=== PATIENT | male | born 1965 | race Hispanic/Latino ===

== ENCOUNTER 2021-06-03 17:04 | Emergency (ER) | payer OTHER, SELFPAY ==
--- NOTE | ~2021-06-03 | CT_ITS ---
EXAMINATION: CT abdomen pelvis w con INDICATION: Diffuse abdominal pain and vomiting TECHNIQUE: Computed tomographic images of the abdomen and pelvis were obtained after the administrati on of 100 cc of Omnipaque 350 intravenous contrast. The dose-length product (DLP) was 1149.70 mGy-cm. Automated exposure control and iterative reconstruction technique were employed. COMPARISON: None available FINDINGS: Minimal dependent atelectasis is present in the lung bases. The heart size is normal. The l iver, spleen, pancreas, and adrenal glands are normal. Stones are present in the nondistended gallbla dder. Cysts of the kidneys measure up to 6 mm on the right. There is a 3 mm nonobstructing stone of t he right kidney. No pathologically enlarged abdominal or pelvic lymph nodes are identified. There is no free intraperitoneal gas or evidence of bowel obstruction. The appendix is normal. IMPRESSION: 1. Cholelithiasis without evidence of cholecystitis. Reviewed, dictated and finalized at location [facility]. [facility]
[2021-06-03 17:10] VITALS: BP 154/84; PULSE 113; RESP 20; TEMP 36.8; O2SAT 98
[2021-06-03 19:10] VITALS: BP 137/79; PULSE 102; RESP 18; TEMP 37.4; O2SAT 97
[2021-06-03 19:45] VITALS: BP 144/86; PULSE 102; RESP 17; O2SAT 98
[2021-06-03 20:10] LABS: Basophils Percent Auto 0.2 % (0.2-1.2); Eosinophils Percent Auto 0.4 % (0-4.4); Hematocrit 43.4 % (42.0-52.0); Hemoglobin 15.3 g/dL (14.0-18.0); Immature Granulocyte Absolute 0.02 K/mm3 (0.00-0.031); Immature Granulocyte Percent A 0.4 % (0-0.5); Lymphocytes Absolute Auto 0.62 K/mm3 (0.9-3.2); Lymphocytes Percent Auto 11.5 % (18.3-44.2); Mean Corpuscular HGB Conc 35.3 g/dl (32-36); Mean Corpuscular Hemoglobin 31.7 pg (26-34); Mean Platelet Volume 9.8 fl (7.4-10.4); Monocytes Absolute Auto 0.7 K/mm3 (0.1-0.6); Monocytes Percent Auto 13.5 % (2.6-8.5); Platelet Count Result 164 k/mm3 (150-375); Red Blood Count 4.82 M/mm3 (4.6-6.20); Red Cell Distribution Width 12.3 % (11.5-14.5); White Blood Count 5.4 K/mm3 (4.5-10.0)
[2021-06-03 20:17] LABS: Lactic Acid Reflex 0.9 mmol/L (0.7-2.1)
[2021-06-03 20:18] LABS: Alanine Aminotransferase 28 U/L (4-50); Albumin Level 4.2 g/dL (3.5-5.1); Alkaline Phosphatase 66 U/L (38-126); Anion Gap 9 mmol/L (8-16); Aspartate Amino Transferase 32 U/L (17-59); Bilirubin,Total 0.8 mg/dL (0.2-1.3); Blood Urea Nitrogen 19 mg/dL (9-20); Calcium 9.1 mg/dL (8.4-10.2); Carbon Dioxide 25 mmol/L (22-30); Chloride 101 mmol/L (98-107); Estimated CRCL calculation 88 ml/min; Estimated Glomerular Filt Rate > 60; Glucose 114 mg/dL (65-110); Lipase 79 U/L (23-300); Potassium 3.8 mmol/L (3.4-5.0); Sodium 135 mmol/L (137-145)
--- NOTE | 2021-06-03 20:24 | ECG_ITS ---
Measurements Intervals [place] Rate: 86 P: 7 ND: 140 QRS: 46 QRSD: 91 T: 45 QT: 368 QTc: 440 Interpretive Statements SINUS RHYTHM BASELINE WANDER- I, II, III, AVL NORMAL ECG Electronically Signed On 06-04-2021 6:01:36 [employer] by Mich Jameson D.O.
--- NOTE | 2021-06-03 20:24 | ED.ABDPAIN ---
HPI - Abdominal Pain General Chief Complaint: Abdominal Pain Stated Complaint: abd pain/nausea/krueger Time Seen by Provider: 06/03/21 20:15 Source: patient and RN notes reviewed Mode of arrival: ambulatory Limitations: no limitations History of Present Illness HPI narrative: This is a 55 year old male who presents for evaluation of upper abdominal pain. He developed pain last night and it has been constant. He describes pain as cramping that worsens with sitting up. He is also having diarrhea, subjective fever and chills. He also reports nausea and vomiting. He reports years ago he had similar symptoms but he does not remember diagnosis. Related Data Allergies Allergy/AdvReac Type Severity Reaction Status Date / Time No Known Allergies Allergy Mild Verified 06/03/21 19:44 Review of Systems Review of Systems: All systems reviewed & are unremarkable except as noted in HPI and below PMFSH Past Medical History Medical History (Updated 06/04/21 @ 00:00 by Boo Valle) No significant medical problems Social History Social History (Updated 06/03/21 @ 20:25 by Yuliya Thomson MD) Smoking status: Never smoker Exam Const: General: no acute distress and alert Orientation/consciousness: patient oriented x3 Eyes: EOM: EOMs intact bilaterally Chest: Chest palpation & inspection: normal inspection of the chest Resp: Effort & Inspection: normal respiratory effort and no retractions Auscultation: clear to auscultation bilaterally Cardio: Rate: tachycardic Rhythm: regular rhythm Heart sounds: no murmurs GI: GI Palp: Yes Soft to palpation, Yes Tenderness to palpation present (GI), No Guarding due to palpation present (GI) and No Rigid due to palpation Auscultation: Hypoactive bowel sounds present : General: Yes no CVA tenderness Skin: General skin exam: normal color Neuro: General: patient oriented x3, moves all extremities and CN's II-XI intact bilaterally Course Reevaluation(s) Reevaluation #1: Patient has been sleeping in no acute distress. He states he feels better. I Discussed ct showing gallstones. I discussed low fat diet and follow up . I Also discussed return precautions. Vital Signs Vital signs: Vital Signs Temperature 98.3 F 06/03/21 17:10 Pulse Rate 113 H 06/03/21 17:10 Respiratory Rate 20 06/03/21 17:10 Blood Pressure 154/84 H 06/03/21 17:10 Pulse Oximetry 98 06/03/21 17:10 Temperature 99.4 F 06/03/21 19:10 Pulse Rate 97 06/03/21 21:40 Respiratory Rate 17 06/03/21 21:40 Blood Pressure 136/94 H 06/03/21 21:40 Pulse Oximetry 98 06/03/21 21:40 MDM - Abdominal Pain Lab Data Attestation: I reviewed the patient's lab results. Result diagrams: 06/03/21 20:01 06/03/21 20:01 Labs: Lab Results 06/03/21 06/03/21 06/03/21 Range/Units 20:01 20:01 20:01 WBC 5.4 (4.5-10.0) K/mm3 RBC 4.82 (4.6-6.20) M/mm3 Hgb 15.3 (14.0-18.0) g/dL Hct 43.4 (42.0-52.0) % MCV 90.0 (80-100) fl MCH 31.7 (26-34) pg MCHC 35.3 (32-36) g/dl RDW 12.3 (11.5-14.5) % Plt Count 164 (150-375) k/mm3 MPV 9.8 (7.4-10.4) fl Immature Gran % (Auto) 0.4 (0-0.5) % Neut % (Auto) 74.0 H (45.5-73.1) % Lymph % (Auto) 11.5 L (18.3-44.2) % [place] % (Auto) 13.5 H (2.6-8.5) % Eos % (Auto) 0.4 (0-4.4) % Baso % (Auto) 0.2 (0.2-1.2) % Lymph # (Auto) 0.62 L (0.9-3.2) K/mm3 [place] # (Auto) 0.7 H (0.1-0.6) K/mm3 Eos # (Auto) 0.0 (0-0.3) K/mm3 Baso # (Auto) 0.0 (0.0-0.1) K/mm3 Abs Immat Gran (auto) 0.02 (0.00-0.031) K/mm3 Absolute Neuts (auto) 4.0 (1.3-6.7) K/mm3 Absolute Nucleated RBC 0.0 (0.0-0.012) K/mm3 Nucleated RBC % 0.0 (0.0-0.2) % Sodium 135 L (137-145) mmol/L Potassium 3.8 (3.4-5.0) mmol/L Chloride 101 (98-107) mmol/L Carbon Dioxide 25 (22-30) mmol/L Anion Gap 9 (8-16) mmol/L BUN 19 (9-20) mg/dL Creatinine
[2021-06-03] MEDS: LACTATED RINGERS 1,000 ML 999 ML IV CONT (20:34)
[2021-06-03] MEDS: ONDANSETRON INJ 4 MG/2 ML VIAL IV PUSH (20:35)
[2021-06-03 21:40] VITALS: BP 136/94; PULSE 97; RESP 17; O2SAT 98
[2021-06-03 22:17] LABS: Add Urine Microscopic? NO; Appearance Urine Clear (Clear); Bilirubin Urine Negative (Negative); Blood Urine Negative (Negative); Color Urine Yellow (Yellow); Glucose Urine UA Negative (Negative); Ketones Urine Negative (Negative); Leukocyte Esterase Ur Negative LEU/UL (Negative); Nitrate Urine Negative (Negative); Protein Urine Negative (Negative); Urobilinogen Urine Negative mg/dL (<2.0)
[2021-06-03] MEDS: DICYCLOMINE HCL 10 MG CAPSULE 20 MG PO (23:37)
== END 2021-06-03 23:46 | disposition home or self-care (01) ==
PROVIDERS: Emergency Provider General Practice
DX: K80.20 Calculus of gallbladder without cholecystitis without obstruction (principal); R11.2 Nausea with vomiting, unspecified
CPT/HCPCS: 36415; 74177; 80053; 81003; 83605; 83690; 85025; 93005; 96365; 96375; 99284; A9270; J0131; J2405; J7120; Q9967